=== PATIENT | female | born 2000 ===

== ENCOUNTER 2025-01-15 14:50 | Outpatient (CLI) | payer OTHER, SELFPAY ==
--- NOTE | ~2025-01-15 | US_ITS ---
EXAM: US OB transvaginal 01/15/2025 14:53 CDT HISTORY: First trimester spotting COMPARISON: None GENERAL: Number of embryos: 1 Heart rate: 176 bpm. [place]-Rump Length (mean): 2.2 cm, 8 weeks 6 days. The BUZZ is August 24, 2025. Yolk Sac: Present. The uterus is retroverted and retroflexed. There is a fluid collection, consistent with a small subchorionic hemorrhage. It has a maximum dimension of 1.5 cm. CALCULATIONS OF GESTATIONAL AGE From today or the earliest obtained ultrasound: 8 weeks 6 days. MATERNAL PELVIS Right ovary: Normal. Left ovary: Normal. Cul-de-sac: No free fluid. IMPRESSION: Single live intrauterine gestation with estimated gestational age as described. Small subchorionic hemorrhage. Reviewed, dictated and finalized at location A.
== END 2025-01-15 14:51 | disposition home or self-care (01) ==
LOC: MICIMG 14:51
DX: O41.8X10 Other specified disorders of amniotic fluid and membranes, first trimester, not applicable or unspecified (principal); Z3A.00 Weeks of gestation of pregnancy not specified
CPT/HCPCS: 76817